=== PATIENT | male | born 1980 | race Caucasian/White ===

== ENCOUNTER 2017-04-21 08:46 | Emergency (ER) | payer BC ==
[2017-04-21 08:54] VITALS: BP 163/92
[2017-04-21] MEDS ORDERED: Ketorolac INJ* 30 MG/ML 1 ML VIAL IV PUSH ONE (09:04)
--- NOTE | 2017-04-21 09:11 | UC ---
Abdominal Pain Male HPI - History of Current Complaint Chief Complaint: UCAbdominalPain Stated Complaint: ABDOMINAL PAIN Time Seen by Provider: 04/21/17 08:56 Hx Obtained From: Patient Onset/Duration: Sudden Onset - felt fine last pm, and when went to bed. awoke this am still feeling fine, ordered breakfast , but before he could eat, he experienced sudden onset R sided abd pain, nausea. denies urinary symptoms, did not have BM today. pain is "cramping". denies back/flank/shoulder pain, feels sweaty Timing: Constant Severity Initially: Severe Severity Currently: Severe Location: Discrete At: RUQ Radiates: No Character: Colicy, Cramping Aggravating Factor(s):: Nothing Alleviating Factor(s): Nothing Associated Signs And Symptoms: Positive: Nausea - Allergies/Home Medications Allergies/Adverse Reactions: Allergies Allergy/AdvReac Type Severity Reaction Status Date / Time No Known Allergies Allergy Verified 04/21/17 08:48 PMH/Surg Hx/FS Hx/Imm Hx Previously Healthy: Yes Psychological History: Other - ADHD - Surgical History Surgical History: None - Family History Known Family History: Positive: None - Social History 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 Lives: With Family Alcohol Use: Weekly Substance Use Type: None Smoking Status (MU): Heavy Every Day Tobacco Smoker Amount Used/How Often: 1/2 PPD Cessation Counseling: Patient Advised to Stop Review of Systems Constitutional: Negative Skin: Negative Respiratory: Negative Cardiovascular: Negative Gastrointestinal: Abdominal Pain, Nausea Genitourinary: Negative Neurological: Negative Psychological: Negative All Other Systems Reviewed And Are Negative: Yes Physical Exam Triage Information Reviewed: Yes Appearance: Well-Nourished, Pain Distress - pt appears uncomfortable Vital Signs: Initial Vital Signs Temp 96.7 F 04/21/17 08:49 Pulse 66 04/21/17 08:49 Resp 18 04/21/17 08:49 BP 163/92 04/21/17 08:49 Pulse Ox 100 04/21/17 08:49 Vital Signs Reviewed: Yes Respiratory Exam: Normal Cardiovascular Exam: Normal Abdomen Description: Positive: No Organomegaly, Soft, CVA Tenderness (R). Negative: Distended, Guarding, McBurney's Point Tenderness, Peritoneal Signs Bowel Sounds: Positive: Present Neurological Exam: Normal Psychological Exam: Normal Skin Exam: Normal Re-Evaluation - Re-Evaluation First Eval Change: Improved - pt lying on exam table, states he is currently pain free. no urge to urinat eyet, IV infusing Second Eval Change: Worse - pt states pain is starting to return. he has not urinated pt agrees to go to ER for further eval Abd Pain Male Course/Dx - Course Course Of Treatment: Report given to [facility] - Differential Dx/Clinical Impression Differential Diagnosis/HQI/PQRI: Appendicitis, Gall Bladder Disease, Ureteral Stone, Urinary Tract Infection Provider Diagnoses: acute abdominal pain Discharge - Discharge Plan Condition: Stable Disposition: [facility] Discharge Disposition Comment: pt stable at time of d/c via EMS [place] [facility] Referrals: Non Staff,Doctor [Primary Care Provider] -
[2017-04-21] MEDS ORDERED: NS 0.9% 1000 ML* 1,000 ML BOLUS SCH ×2 (09:15→10:45)
== END 2017-04-21 10:56 | disposition short-term general hospital (02) ==
LOC: UCEAST 08:46
DX: R10.9 Unspecified abdominal pain (principal); Z72.0 Tobacco use
CPT/HCPCS: 81003; 96360; 96361; 96374; 99203; G0463; J1885

== ENCOUNTER 2017-04-21 11:46 | Emergency (ER) | payer BC ==
--- NOTE | 2017-04-21 12:51 | ED ---
Abdominal Pain/Male - HPI Summary HPI Summary: Overall healthy pt here w/ acute RUQ around 7:00am. Had just ordered breakfast when he developed a sudden sharp RUQ pain. Decreased appetite but no nausea, vomiting, diarrhea. Pain was initially constant - now colicky. Went to [facility] and was found to have hematuria (3+). Denies flank pain, increased urination, dysuria, urgency, fever, chills. Normal BM's w/ no h/o GI pathology. Drinks couple times a week - smokes 1/2PPD - no drug use, current or h/o, no homemade tattoos. Traveled to [place] last month - stayed at resort - no other family who traveled with him have illness/sx. Imms are UTD. - History of Current Complaint Chief Complaint: EDAbdPain Stated Complaint: ABD PAIN Time Seen by Provider: 04/21/17 12:44 Hx Obtained From: Patient Pain Intensity: 5 - Allergies/Home Medications Allergies/Adverse Reactions: Allergies Allergy/AdvReac Type Severity Reaction Status Date / Time No Known Allergies Allergy Verified 04/21/17 08:48 PMH/Surg Hx/FS Hx/Imm Hx Previously Healthy: Yes Endocrine/Hematology History: Denies: Hx Anticoagulant Therapy, Hx Blood Disorders GI History: Denies: Hx Cirrhosis, Hx Crohn's Disease, Hx Diverticulosis, Hx Gall Bladder Disease, Hx Gastroesophageal Reflux Disease, Hx Gastrointestinal Bleed, Hx Ulcer History: Denies: Hx Kidney Infection, Hx Kidney Stones Infectious Disease History: Yes Infectious Disease History: Reports: Traveled Outside the in Last 30 Days - [place] - stayed at resort - Family History Known Family History: Positive: None - Social History 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 Lives: With Family Alcohol Use: Weekly Hx Substance Use: No Substance Use Type: Reports: None Hx Tobacco Use: Yes Smoking Status (MU): Current Every Day Smoker Amount Used/How Often: 1/2 PPD Physical Exam Vital Signs On Initial Exam: Initial Vitals Temp Pulse Resp BP Pulse Ox 99.2 F 83 18 130/78 96 04/21/17 12:26 04/21/17 12:26 04/21/17 12:26 04/21/17 12:26 04/21/17 12:26 - [place] Coma Scale Coma Scale Total: 15 Diagnostics - Vital Signs Vital Signs Temp Pulse Resp BP Pulse Ox 04/21/17 12:26 99.2 F 83 18 130/78 96 - Laboratory Lab Statement: Any lab studies that have been ordered have been reviewed, and results considered in the medical decision making process.
[2017-04-21 13:30] LABS: Hematocrit 45 % (42-52); Hemoglobin 14.8 g/dl (14.0-18.0); Mean Corpuscular HGB Conc 33 g/dl (31-36); Mean Corpuscular Hemoglobin 30 pg (27-31); Mean Corpuscular Volume 89 fL (80-94); Mean Platelet Volume 8 um3 (7.4-10.4); Red Cell Distribution Width 13 % (10.5-15); White Blood Count 12.2 10^3/ul (3.5-10.8)
[2017-04-21 13:42] LABS: Albumin 3.9 g/dL (3.2-5.2); BUN/Creatinine Ratio 13.9 (8-20); C Reactive Protein 7.38 mg/L (< 5.00); Calcium 8.7 mg/dL (8.6-10.3); EGFR African American 108.7 (>60); EGFR Non-African American 84.6 (>60); Globulin 2.6 g/dL (2-4); Potassium 4.2 mmol/L (3.5-5.0); Total Bilirubin 0.4 mg/dL (0.2-1.0); Total Protein 6.5 g/dL (6.4-8.9)
--- NOTE | 2017-04-21 14:32 | RAD ---
Indication: Right flank pain with hematuria. CT of the abdomen and pelvis was performed without oral or IV contrast administration. Coronal and sagittal reconstructed images were obtained. The lung bases demonstrate no pleural fluid, nodules or masses. Heart is of normal size without evidence of pericardial effusion. Liver is normal in size. No focal lesions or intrahepatic ductal dilatation is noted. The gallbladder demonstrates no calcified gallstones. No pericholecystic fluid or wall thickening is noted. The spleen is normal in size. The pancreas demonstrates no mass or pancreatic ductal dilatation. The common duct is not dilated. No adrenal lesions are noted. The adrenal glands are otherwise unremarkable. There is a mild enlargement of the right kidney with mild to moderate right hydronephrosis. Mild right hydroureter is noted. There is a calculus in the right ureter just adjacent to the ureterovesicular junction measuring approximately 4.5 mm. The left kidney shows no hydronephrosis. No retroperitoneal lymphadenopathy is noted. No dilated loops of bowel are noted. There is a left-sided inferior vena cava noted. No dilated loops of bowel are noted. The appendix is visualized and appears normal. No hernias are identified. IMPRESSION: There is a 4.5 mm calculus in the distal right ureter just above the right ureterovesicular junction with mild right hydroureter and mild to moderate right hydronephrosis with enlargement of the right kidney. Left kidney is unremarkable. There is a left-sided inferior vena cava.
[2017-04-21] MEDS ORDERED: Tamsulosin CAP* 0.4 MG PO ONE (15:01)
[2017-04-21] MEDS ORDERED: Morphine INJ* 4 MG/ML 1 ML SYRINGE IV ONE (15:07)
[2017-04-21] MEDS ORDERED: Ondansetron INJ* 2 MG/ML VIAL IV ONE (15:07)
[2017-04-21 15:12] LABS: Urine Bacteria Absent (Absent); Urine Bilirubin Negative (Negative); Urine Glucose Negative (Negative); Urine Nitrite Negative (Negative)
[2017-04-21 15:43] VITALS: BP 121/64
== END 2017-04-21 16:50 | disposition home or self-care (01) ==
LOC: ED 11:46
DX: R10.11 Right upper quadrant pain (principal); R31.9 Hematuria, unspecified; F17.210 Nicotine dependence, cigarettes, uncomplicated
CPT/HCPCS: 36415; 74176; 80053; 81003; 81015; 82150; 83605; 83690; 85025; 86140; 96374; 96375; 99284; J2270; J2405